=== PATIENT | male | born 1980 | race Caucasian/White ===

== ENCOUNTER 2017-02-02 21:06 | Emergency (ER) | payer SELFPAY ==
[2017-02-02 23:45] VITALS: BP 128/75
== END 2017-02-02 23:45 | disposition home or self-care (01) ==
LOC: ED 21:06
DX: S62.336A Displaced fracture of neck of fifth metacarpal bone, right hand, initial encounter for closed fracture (principal); W22.8XXA Striking against or struck by other objects, initial encounter; Y93.89 Activity, other specified; Y92.89 Other specified places as the place of occurrence of the external cause; Y99.8 Other external cause status
CPT/HCPCS: J1885